=== PATIENT | female | born 1960 | race Two or more races ===

== ENCOUNTER 2016-12-15 16:55 | Emergency (ER) | payer SELFPAY ==
[~2016-12-15] VITALS: Ht 157.5 cm; Wt 97.1 kg
[2016-12-15] MEDS: Acetaminophen 500mg (ES) tab ORAL ONE (17:41)
[2016-12-15 18:14] VITALS: BP 154/93
--- NOTE | 2016-12-15 18:35 | Emergency Room Report ---
History of Present Illness General Chief Complaint: Multiple Trauma/Fall Source: Patient Present Illness HPI 56 YO Female Pt. presents to the ED c/o localized left elbow, left knee, right great toe, left shoulder pain status post mechanical slip and fall yesterday. Pt reports pain as 5/10 in severity. Patient also reports pain in the upper back that radiates up into the back of the head mainly on the left side. Patient denies midline spinal pain, denies loss of consciousness denies incontinence. NO saddle anesthesia. Pt states she believes the left knee is swollen, denies instability,states pain is exacerbated with walking. reports primarily anterior knee pain. Denies taking blood thinning medications. denies directly hitting her head. pt. can recall the entire event. Denies numbness tingling or loss of sensation or gross motor movements of the extremities, incontinence of bowel or bladder. Denies CP, Palpitations, LOC, AMS, dizziness, Changes in Vision, Sensation, paresthesias, or a sudden severe headache. Allergies: Coded Allergies: PENICILLINS (Verified Allergy, Unknown, 12/15/16) Patient History Past Medical History: see triage record Past Surgical History: none Pertinent Family History: none Now: No Immunizations: UTD Reviewed Nursing Documentation: PMH: Agreed, PSxH: Agreed Nursing Documentation-PMH Past Medical History: No History, Except For Hx Hypertension: Yes Review of Systems All Other Systems: negative except mentioned in HPI Physical Exam Vital Signs Date Time Temp Pulse Resp B/P Pulse Ox O2 Delivery O2 Flow Rate FiO2 12/15/16 17:15 98.1 97 16 169/97 100 Room Air Sp02 EP Interpretation: reviewed, normal General Appearance: no apparent distress, alert, GCS 15, non-toxic Head: normocephalic, atraumatic Eyes: bilateral eye EOMI, bilateral eye PERRL, bilateral eye normal inspection ENT: hearing grossly normal, normal pharynx, no angioedema, normal voice Neck: full range of motion, no bony tend, supple/symm/no masses, tender lateral - left lateral TTP Respiratory: chest non-tender, lungs clear, normal breath sounds, speaking full sentences Cardiovascular #1: regular rate, rhythm, no edema Rectal: deferred Genitourinary: normal inspection, no CVA tenderness Musculoskeletal: back normal, gait/station normal, normal range of motion, no calf tenderness, tender - Pt. presents to the ED c/o left elbow, left knee, right great toe, left shoulder pain status post mechanical slip and fall yesterday. Patient also reports pain in the upper back that radiates up into the back of the head mainly on the left side. Patient denies midline spinal pain, denies loss of consciousness denies incontinence. NO saddle anesthesia, PT. has left sided paraspinal TTP in the T-spine and the left lateral neck. no midline pain, no obvious deformities, pt. has FROM of all affected joints with mild increase in pain noted. Neurologic: alert, oriented x3, responsive, motor strength/tone normal, sensory intact, normal gait, speech normal Psychiatric: judgement/insight normal, memory normal, mood/affect normal, no suicidal/homicidal ideation Skin: normal color, no rash, warm/dry, well hydrated Lymphatic: no adenopathy Medical Decision Making PA Attestation Dr. guzman is my supervising Physician whom patient management has been discussed with. Diagnostic Impression: Primary Impression: Knee effusion, left Additional Impressions: Contusion Qualified Codes: S50.02XA - Contusion of left elbow, initial encounter Contusion of soft tissue Muscle spasm ER Course Pt. presents to the ED c/o left elbow, left knee, right great toe, left shoulder pain status post mechanical slip and fall yesterday. Patient also reports pain in the upper back that radiates up into the back of the head mainly on the left side. Patient denies midline spinal pain, denies loss of consciousness denies incontinence. NO saddle anesthesia Ddx considered but are not limited to Fracture, dislocation, contusion, Sprain/ Strain/Spasm, Epidural abscess, Neoplastic mets. Vital signs: are WNL, pt. is afebrile H&PE are most consistent with Contusion, and muscle spasm will r/o fractures with imaging. CT head not warranted, no focal neurological deficits, no midline spinal or neck pain. ORDERS: - X-ray Left shoulder 3 views - negative for fx, Dislocation, or significant soft tissue injury, per preliminary read in ED by Dr. Rojo. - X-ray Right foot 3 views - negative for fx, Dislocation, or significant soft tissue injury, per preliminary read in ED by Dr. Rojo. - X-ray left elbow 2 views - negative for fx, Dislocation, or significant soft tissue injury, per preliminary read in ED by Dr. Rojo. - X-ray Left knee 3 views - negative for fx, Dislocation, or significant soft tissue injury, Positive for mild Effusion noted- per preliminary read in ED by Dr. Rojo. ED INTERVENTIONS: - 1000mg Tylenol PO -350mg Soma PO - Emmanuel wrap applied to the left knee by engineering laboratory technician. Pt. remains neurovascularly intact. DISCHARGE: At this time pt. is stable for d/c to home. Will provide printed patient care instructions, and any necessary prescriptions. Care plan and follow up instructions have been discussed with the patient prior to discharge. Last Vital Signs Date Time Temp Pulse Resp B/P Pulse Ox O2 Delivery O2 Flow Rate FiO2 12/15/16 18:14 97.9 94 15 154/93 100 Room Air Disposition: HOME, SELF-CARE Condition: Stable Scripts Acetaminophen* (TYLENOL EXTRA STRENGTH*) 500 Mg Tablet 500 MG ORAL Q6H, #30 TAB 0 Refills Prov: Cheyanne Johnson 12/15/16 Cyclobenzaprine Hcl* (FLEXERIL*) 10 Mg Tablet 10 MG ORAL THREE TIMES A DAY, #21 TAB Prov: Cheyanne Johnson 12/15/16 Referrals: NOT CHOSEN IPA/,REFERRING (PCP) Patient Instructions: Contusion, [id number], Muscle Cramps and Spasms, Easy- to-Read Additional Instructions: Take medications as directed. Follow up with PCP in 3-5 days Return sooner to ED if new symptoms occur, or current symptoms become worse. Do not drink alcohol, drive, or operate heavy machinery while taking Muscle relaxer as this may cause drowsiness. Cheyanne Johnson Dec 15, 2016 18:35
[2016-12-15] MEDS ORDERED: TYLENOL EXTRA500 MG ORAL (18:37)
[2016-12-15] MEDS ORDERED: CYCLOBENZAPRINE10 MG ORAL (18:37)
[2016-12-15 19:03] VITALS: BP 154/93
--- NOTE | 2016-12-16 09:57 | Diagnostic Imaging Report ---
Indications: Old, left shoulder injury and pain Technique: 3 views left shoulder. Findings: Comparison: None No fracture, dislocation, joint space widening , surrounding soft tissue swelling/foreign body/other abnormality, or other acute changes are identified. Mild spurring is present at the margins of the acromioclavicular joint. IMPRESSION: No evidence of acute injury to left shoulder. Acromioclavicular joint margin spurring. Rotator cuff impingement not excludable. Correlate clinically.
--- NOTE | 2016-12-16 10:00 | Diagnostic Imaging Report ---
Indications: Fall, left elbow injury and pain Technique: 3 views left elbow. Findings: Comparison: None No fracture, dislocation, joint space widening or effusion , surrounding soft tissue swelling/foreign body/other abnormality, or other acute changes are identified. IMPRESSION: No evidence of acute injury to the left elbow.
--- NOTE | 2016-12-16 10:02 | Diagnostic Imaging Report ---
Indications: Fall, left knee injury and pain Technique: 3 views left knee. Findings: Comparison: None No fracture, dislocation, joint space widening or effusion , surrounding soft tissue swelling/foreign body/other abnormality, or other acute changes are identified. Small osteophytes present at the margins of the patellofemoral and knee joint spaces without narrowing. IMPRESSION: No evidence of acute injury to the left knee. Mild osteoarthritis
--- NOTE | 2016-12-30 10:08 | Diagnostic Imaging Report ---
Indications: Fall, right foot injury and pain Technique: 3 views right foot. Findings: Comparison: None No fracture, dislocation, joint space widening , surrounding soft tissue swelling/foreign body/other abnormality, or other acute changes are identified. Small spur plantar aspect calcaneus. IMPRESSION: No evidence of acute injury to right foot. Calcaneal enthesophyte
== END 2016-12-15 19:04 | disposition home or self-care (01) ==
LOC: EMR 17:40
DX: S50.02XA Contusion of left elbow, initial encounter (principal); M25.462 Effusion, left knee; W01.0XXA Fall on same level from slipping, tripping and stumbling without subsequent striking against object, initial encounter; Y92.9 Unspecified place or not applicable; M17.12 Unilateral primary osteoarthritis, left knee; I10 Essential (primary) hypertension; M25.512 Pain in left shoulder; M79.674 Pain in right toe(s); M54.9 Dorsalgia, unspecified; Z88.0 Allergy status to penicillin
CPT/HCPCS: 99284